=== PATIENT | male | born 1960 | race Caucasian/White ===

== ENCOUNTER 2021-10-25 15:29 | Inpatient (IN) | payer MEDICAID ==
[2021-10-25] VITALS (7 sets, daily range): BP systolic 100–128; BP diastolic 38–77
[~2021-10-25] VITALS: Ht 165.1 cm; Wt 78.6 kg
--- NOTE | 2021-10-25 15:50 | NUR ---
To ER bed 4, from home c/o "Started having palpitations yesterday-more constant now", aaox3, breathing even and non labored, connected to monitor
--- NOTE | 2021-10-25 16:01 | NUR ---
DR PACE AT BEDSIDE FOR EVAL
--- NOTE | 2021-10-25 16:13 | NUR ---
SALINE LOCK ESTABLISHED, BLOOD DRAWN AND SENT TO LAB
[2021-10-25] MEDS ORDERED: ASPIRIN 81 MG TAB.CHEW ONE (16:22)
[2021-10-25] MEDS ORDERED: DILTIAZEM HCL 50 MG IV ONE (16:23)
[2021-10-25] MEDS ORDERED: IV NS 0.9% 500 ML BAG IV ONE (16:30)
[2021-10-25] MEDS ORDERED: ASPIRIN 81 MG TAB.CHEW PO ONE (16:30)
[2021-10-25] MEDS ORDERED: DILTIAZEM HCL 50 MG IV IV ONE (16:30)
--- NOTE | 2021-10-25 16:30 | NUR ---
FERRY BOAT CAPTAIN AT BEDSIDE
[2021-10-25 17:03] LABS: BASOPHILS % (AUTO) 0.3 % (0.0-2.0); EOSINOPHILS % (AUTO) 0.5 % (0.0-6.0); HEMATOCRIT 43 % (39-51); HEMOGLOBIN 14.9 g/dL (13.5-17.5); LYMPHOCYTES # (AUTO) 2.6 K/uL (0.8-4.8); LYMPHOCYTES % (AUTO) 31.6 % (20.0-44.0); MEAN CORPUSCULAR HGB CONC 35 g/dl (31.0-36.0); MEAN CORPUSCULAR VOLUME 88 fL (80-96); MONOCYTES # (AUTO) 0.6 K/uL (0.1-1.30); MONOCYTES % (AUTO) 7.1 % (2.0-12.0); NEUTROPHILS # (AUTO) 4.9 K/uL (1.8-8.9); NEUTROPHILS % (AUTO) 60.5 % (43.0-81.0); PLATELET COUNT (AUTO) 251 K/uL (150-450); RED BLOOD CELL COUNT(AUTO) 4.81 MIL/uL (4.5-6.0); WHITE BLOOD COUNT (AUTO) 8.1 K/uL (4.3-11.0)
[2021-10-25 17:14] LABS: CARBON DIOXIDE 32 mmol/L (21-32); CHLORIDE 100 mmol/L (98-107); CREATININE 1.1 mg/dL (0.6-1.3); GLUCOSE 94 mg/dL (74-106); POTASSIUM 3.3 mmol/L (3.5-5.1); SODIUM SERUM 139 mmol/L (136-145); UREA NITROGEN, BLOOD 19 mg/dL (7-18)
--- NOTE | 2021-10-25 17:22 | NUR ---
DR. SAWYER SPEAKING WITH DR. PACE.
--- NOTE | 2021-10-25 17:25 | NUR ---
MOVE SHEET SUBMITTED AND CALLED FOR TELE BED.
--- NOTE | 2021-10-25 17:28 | NUR ---
[facility] CALLED EXTRUSION LINE OPERATOR PAGED.
[2021-10-25] MEDS ORDERED: AMIODARONE 150 MG/3 ML VIAL IV ONE (17:30)
[2021-10-25] MEDS ORDERED: AMIODARONE 150 MG in IV D5W 100 ML IV ONE (17:30)
[2021-10-25] MEDS ORDERED: POTASSIUM CHLORIDE 20 MEQ TAB.PRT.SR PO ONE ×2 (17:30→17:58)
--- NOTE | 2021-10-25 17:32 | NUR ---
COVID SWAB DONE AND SENT TO LAB
[2021-10-25] MEDS ORDERED: LISI10TA29 PO (17:51)
[2021-10-25] MEDS ORDERED: INDA2.5T5 PO (17:51)
[2021-10-25] MEDS ORDERED: TAMS-12 PO (17:51)
--- NOTE | 2021-10-25 17:52 | NUR ---
PATIENT AMBULATED TO THE RESTROOM WITH STEADY GAIT
[2021-10-25] MEDS ORDERED: DOCUSATE SODIUM 100 MG CAPSULE PO PRN (18:00)
[2021-10-25] MEDS ORDERED: ONDANSETRON HCL/PF 4 MG/2 ML VIAL IVP PRN (18:00)
[2021-10-25] MEDS ORDERED: MORPHINE SULFATE INJ 2 MG/ML DISP.SYRIN IV PRN (18:00)
[2021-10-25] MEDS ORDERED: NITROGLYCERIN 0.4 MG/TAB BOTTLE SL PRN (18:00)
[2021-10-25] MEDS ORDERED: ACETAMINOPHEN 325 MG TABLET PO PRN (18:00)
[2021-10-25] MEDS ORDERED: MAG HYDROX/AL HYDROX/SIMETH 30 ML UDC PO PRN (18:00)
[2021-10-25] MEDS ORDERED: AMIODARONE 450 MG in IV D5W 241 ML IV ONE (18:30)
--- NOTE | 2021-10-25 18:39 | NUR ---
AMIODARONE 900MG ORDER CORRECTED BY PHARMACY
[2021-10-25] MEDS ORDERED: APIXABAN 5 MG TABLET ONE (18:49)
[2021-10-25] MEDS: APIXABAN 5 MG TABLET PO SCH (18:52)
--- NOTE | 2021-10-25 19:43 | NUR ---
REPORTED BY SABINA, AMIODARONE DRIP AT 0.825 MG/MIN , PER PHARMACY. AFTER THE 6TH HOUR 10/26/2021 @0025 TRITRATE TO 0.4125/MIN
--- NOTE | 2021-10-25 19:52 | NUR ---
REPORT GIVEN TO HUNTER QUIJANO FOR AMANDA
--- NOTE | 2021-10-25 20:04 | NUR ---
SECOND IV LINE ESTABLISHED, LAC 18G
[2021-10-25] MEDS: AMIODARONE 450 MG in IV D5W 241 ML IV PRN (20:16)
[2021-10-25] MEDS ORDERED: TAMSULOSIN 0.4 MG CAP.SR.24H PO SCH (22:00)
[2021-10-26] VITALS (30 sets, daily range): BP systolic 89–120; BP diastolic 48–73
[2021-10-26] MEDS: AMIODARONE 450 MG in IV D5W 241 ML IV PRN (02:23)
[2021-10-26 04:36] LABS: BASOPHILS % (AUTO) 0.4 % (0.0-2.0); EOSINOPHILS % (AUTO) 0.9 % (0.0-6.0); HEMATOCRIT 40 % (39-51); HEMOGLOBIN 13.9 g/dL (13.5-17.5); LYMPHOCYTES # (AUTO) 2.5 K/uL (0.8-4.8); LYMPHOCYTES % (AUTO) 36.5 % (20.0-44.0); MEAN CORPUSCULAR HGB CONC 35 g/dl (31.0-36.0); MEAN CORPUSCULAR VOLUME 89 fL (80-96); MONOCYTES # (AUTO) 0.5 K/uL (0.1-1.30); MONOCYTES % (AUTO) 6.7 % (2.0-12.0); NEUTROPHILS # (AUTO) 3.9 K/uL (1.8-8.9); NEUTROPHILS % (AUTO) 55.5 % (43.0-81.0); PLATELET COUNT (AUTO) 217 K/uL (150-450); RED BLOOD CELL COUNT(AUTO) 4.44 MIL/uL (4.5-6.0)
[2021-10-26 05:07] LABS: ALBUMIN 3.3 g/dL (3.4-5.0); BILIRUBIN,TOTAL 0.6 mg/dL (0.2-1.0); CALCIUM, SERUM 8.8 mg/dL (8.5-10.1); MAGNESIUM 1.7 mg/dL (1.8-2.4); PHOSPHORUS 3.6 mg/dL (2.5-4.9); POTASSIUM 3.3 mmol/L (3.5-5.1); TOTAL PROTEIN, SERUM 6.5 g/dL (6.4-8.2)
[2021-10-26 05:10] LABS: THYROID STIMULATING HORMONE 2.604 uIU/mL (0.358-3.74)
--- NOTE | 2021-10-26 07:35 | NUR ---
FAMILY [facility] JUSTICE NOTES Patient is alert and oriented. Sinus rhythm on the monitor. Patient is on room air. LAC and RAC iv sites noted. No c/o pain or discomfort. Will continue to monitor. Call light with in reach. Bed is in lowest and locked position.
[2021-10-26] MEDS ORDERED: METOPROLOL SUCCINATE 50 MG TAB.SR.24H PO SCH ×2 (08:00→10:00)
[2021-10-26] MEDS: POTASSIUM CHLORIDE 20 MEQ TAB.PRT.SR PO SCH ×4 (08:31→11:29)
[2021-10-26] MEDS: APIXABAN 5 MG TABLET PO SCH (08:32)
[2021-10-26] MEDS: Magnesium 1GM/D5W 100ML PREMIX 100 ML IV SCH ×2 (08:35→10:03)
[2021-10-26] MEDS: IV NS 0.9% 1,000 ML IV SCH ×2 (08:45→12:42)
[2021-10-26] MEDS ORDERED: ASPIRIN 81 MG TAB.CHEW PO SCH (09:00)
[2021-10-26] MEDS ORDERED: LISINOPRIL (10MG) 10 MG TABLET PO SCH (09:00)
[2021-10-26] MEDS ORDERED: INDAPAMIDE 2.5 MG TABLET PO SCH (09:00)
[2021-10-26] MEDS ORDERED: METOPROLOL SUCCINATE 25 MG TAB.SR.24H PO SCH (10:00)
--- NOTE | 2021-10-26 10:52 | NUR ---
SS Note: SW received consult for assist with application for [employer]. SW contact pt.'s daughter [Iqra [phone]] and provided her with the [employer]'s number [[phone]]. They will be able to assist with applying for [employer].
[2021-10-26] MEDS ORDERED: POTA-88 PO (11:00)
[2021-10-26] MEDS ORDERED: METO25TA4 PO (11:00)
[2021-10-26] MEDS ORDERED: POTASSIUM CHLORIDE 20 MEQ TAB.PRT.SR PO SCH (12:00)
--- NOTE | 2021-10-26 14:28 | NUR ---
Discharge Patient discharged to home with Daughter Iqra. Patient is alert and oriented, Sinus Rhythm on the monitor. Patient is breathing even and unlabored on room air. Noc/o chest pain. Patient is able to ambulate with keno writer/runner with no assistance. No c/o dizziness or chest pain. Education and instructions provided to daughter. Pharmacy of choice was sent prescriptions of potassium and toprol. Educated regarding continuing previous home meds except lisinopril. Follow up with PCP with in 7 days. Belongings accounted for.
[2021-10-27] MEDS ORDERED: METOPROLOL SUCCINATE 50 MG TAB.SR.24H PO SCH (08:00)
== END 2021-10-26 16:37 | disposition home or self-care (01) | DRG 201 ==
LOC: ER 15:50 → TRANSITION 18:41 → ICU 19:40
PROVIDERS: ADMIT Registered Nurse; ATTEND Student in an Organized Health Care Education/Training Program
DX: I48.91 Unspecified atrial fibrillation (principal); E66.9 Obesity, unspecified; E87.6 Hypokalemia; N40.0 Benign prostatic hyperplasia without lower urinary tract symptoms; I10 Essential (primary) hypertension; Z79.899 Other long term (current) drug therapy; Z68.29 Body mass index [BMI] 29.0-29.9, adult; E83.42 Hypomagnesemia; R79.89 Other specified abnormal findings of blood chemistry
CPT/HCPCS: 36415; 71045-TC; 80048-TC; 80053-TC; 83735-TC; 84100-TC; 84443-TC; 84484-TC; 85025-TC; 87081-TC; 93307-TC; G0378; J0282; J3475; J3490; J7030; J7040; J7050; J7060

== ENCOUNTER 2023-08-11 15:32 | Emergency (ER) | payer MEDICAID ==
[~2023-08-11] VITALS: Ht 162.6 cm; Wt 81.6 kg
[~2023-08-11 15:32] MED LIST: INDA2.5T5 PO; LISI10TA29 PO; METO25TA4 PO; POTA-88 PO; TAMS-12 PO
[2023-08-11] MEDS ORDERED: METOPROLOL TARTRATE INJ 5 MG/5 ML AMPUL ONE (16:27)
[2023-08-11] MEDS: METOPROLOL TARTRATE INJ 5 MG/5 ML AMPUL IVP ONE (16:33)
[2023-08-11 16:44] LABS: BASOPHILS % (AUTO) 0.2 % (0.0-2.0); EOSINOPHILS # (AUTO) 0.1 K/uL (0.0-0.7); EOSINOPHILS % (AUTO) 1.5 % (0.0-6.0); HEMATOCRIT 42 % (39-51); LYMPHOCYTES # (AUTO) 2.8 K/uL (0.8-4.8); LYMPHOCYTES % (AUTO) 39.2 % (20.0-44.0); MEAN CORPUSCULAR HEMOGLOBIN 31 PG (26.0-33.0); MEAN CORPUSCULAR HGB CONC 36 g/dl (31.0-36.0); MEAN CORPUSCULAR VOLUME 88 fL (80-96); MONOCYTES # (AUTO) 0.6 K/uL (0.1-1.30); MONOCYTES % (AUTO) 8.4 % (2.0-12.0); NEUTROPHILS # (AUTO) 3.6 K/uL (1.8-8.9); NEUTROPHILS % (AUTO) 50.7 % (43.0-81.0); PLATELET COUNT (AUTO) 258 K/uL (150-450); RED BLOOD CELL COUNT(AUTO) 4.79 MIL/uL (4.5-6.0); WHITE BLOOD COUNT (AUTO) 7.2 K/uL (4.3-11.0)
[2023-08-11 16:54] LABS: CALCIUM, SERUM 9.2 mg/dL (8.5-10.1); CARBON DIOXIDE 31 mmol/L (21-32); CHLORIDE 103 mmol/L (98-107); CREATININE 0.9 mg/dL (0.6-1.3); GLUCOSE 98 mg/dL (74-106); POTASSIUM 3.5 mmol/L (3.5-5.1); SODIUM SERUM 140 mmol/L (136-145); UREA NITROGEN, BLOOD 16 mg/dL (7-18)
[2023-08-11 17:07] LABS: NT-PRO BNP 436 pg/mL (0-125)
[2023-08-11] MEDS ORDERED: METOPROLOL TARTRATE 25 MG TABLET ONE (17:40)
[2023-08-11] MEDS: METOPROLOL TARTRATE 25 MG TABLET PO ONE (17:44)
[2023-08-11 20:58] VITALS: BP 109/61; TEMP 98.4; O2SAT 98
== END 2023-08-11 20:58 | disposition home or self-care (01) ==
LOC: ER 15:32
DX: I48.20 Chronic atrial fibrillation, unspecified (principal); I10 Essential (primary) hypertension
CPT/HCPCS: 99285; 96374; 71045; 93005; 85025; 80048; 36415; 84484 ×2; 83880; J3490